=== PATIENT | female | born 1955 | race Caucasian/White ===

== ENCOUNTER 2016-12-23 06:33 | Day surgery (SDC) | payer OTHER ==
[2016-12-23] MEDS ORDERED: ALBUTEROL 3 ML DEYVIAL ONE (07:11)
[2016-12-23] MEDS ORDERED: MIDAZOLAM 2 MG/2 ML VIAL ONE (07:11)
[2016-12-23] MEDS ORDERED: LIDOCAINE 1% 300 MG/30 ML SDV ONE (07:11)
[2016-12-23] MEDS ORDERED: fentaNYL 100 MCG/2 ML INJ ONE (07:12)
[2016-12-23] MEDS ORDERED: LIDOCAINE 2% JELLY 5 ML TUBE ONE (07:12)
--- NOTE | 2016-12-23 16:16 | GPN ---
[f rep st] PROCEDURE NOTE DATE OF PROCEDURE: 12/23/2016 PROCEDURE: Bronchoalveolar lavage. INDICATIONS: Pneumonia in the setting of breast cancer. CONSENT: Informed consent was obtained from the patient prior to the administration of anesthesia. The risks and benefits of both conscious sedation and the procedure were explained in detail and ayush jaimes agreed to proceed. A time-out was performed prior to the administration of any anesthesia. Conscious sedation was achieved using a total of 3 mg of IV Versed and 75 mcg of IV fentanyl. The p atradha tolerated these well though there was a brief hypoxic episode in the middle of the procedure. We changed her nasal cannula to a non-rebreather and were able to proceed safely. This resolved a s she woke up. DESCRIPTION OF PROCEDURE: After application of topical lidocaine, bronchoscope was passed through h er mouth which was quite crowded with soft tissue. Her vocal cords moved normally and appeared to b e otherwise normal in appearance. The trachea was midline. The mucosa was normal. The main sub ca elmer was sharp. The bronchoscope was advanced down to the left lower lobe where there were thin sec retions throughout but no endobronchial lesions. Attention was then taken to the right lower lobe where she had increased infiltrates on a CT scan. A bronchoalveolar lavage was performed in the right lower lobe using 3 aliquots of 40 mL of normal s tadeo. There was approximately 70 mL of clear to cloudy fluid but no blood that was returned. The patient tolerated this well, and there were no obvious complications. Oxygen saturations remained a codi 90% at the time I left the procedure. The results as well as the oxygen issue were discussed w ith her in great detail. /[id number]/MODL
== END 2016-12-23 09:55 | disposition home or self-care (01) ==
LOC: FSGY 06:33
PROVIDERS: ATTEND Internal Medicine Critical Care Medicine
PROC: 0B968ZX Drainage of Right Lower Lobe Bronchus, Via Natural or Artificial Opening Endoscopic, Diagnostic (ICD-10-PCS; principal; 2016-12-23 07:30)
DX: J18.9 Pneumonia, unspecified organism (principal); Z85.3 Personal history of malignant neoplasm of breast; Z90.13 Acquired absence of bilateral breasts and nipples
CPT/HCPCS: J0171; J2250; J3010